=== PATIENT | male | born 1985 | race African-American/Black ===

== ENCOUNTER 2016-08-11 22:55 | Emergency (ER) | payer MEDICAID ==
[~2016-08-11] VITALS: Ht 188 cm; Wt 79.5 kg
[~2016-08-11 22:55] MED LIST: DICL75TA PO
[2016-08-11 23:10] VITALS: BP 177/99; PULSE 69; RESP 10; TEMP 97.9; O2SAT 97
[2016-08-11] MEDS ORDERED: XANA2TAB2 PO (23:23)
[2016-08-11] MEDS ORDERED: HYDR-3533 PO (23:23)
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
[2016-08-11] MEDS ORDERED: SODIUM CHLOR 0.9% 1000 ML INJ 1,000 ML IV ONE (23:30)
[2016-08-12 00:08] LABS: AUTOMATED NEUTROPHIL # 14.1 TH/MM3 (1.8-7.7); BASOPHIL % 0.1 % (0.0-2.0); EOSINOPHIL # 0.3 TH/MM3 (0-0.4); EOSINOPHIL % 1.8 % (0.0-4.0); HEMATOCRIT 44.2 % (39.0-51.0); HEMO FLAGS DIFF FINAL; LYMPH % 9.1 % (9.0-44.0); LYMPHOCYTE # 1.5 TH/MM3 (1.0-4.8); MEAN CELL VOLUME 86.4 FL (80.0-100.0); MEAN CORPUSCULAR HEMOGLOBIN 28.8 PG (27.0-34.0); MEAN CORPUSCULAR HGB CONC 33.4 % (32.0-36.0); MONO % 5.2 % (0.0-8.0); NEUT % 83.8 % (16.0-70.0); PLATELET COUNT 249 TH/MM3 (150-450); RED BLOOD COUNT 5.12 MIL/MM3 (4.50-5.90); RED CELL DISTRIBUTION WIDTH 14.3 % (11.6-17.2); WHITE BLOOD COUNT 16.8 TH/MM3 (4.0-11.0)
[2016-08-12 00:31] LABS: ANION GAP 6 MEQ/L (5-15); AST (GOT) 14 U/L (15-37); BICARBONATE 28.8 MEQ/L (21.0-32.0); BLOOD UREA NITROGEN 11 MG/DL (7-18); CHLORIDE 104 MEQ/L (98-107); GLOMERULAR FILTRATION RATE 79 ML/MIN (>89); MAGNESIUM 2.1 MG/DL (1.5-2.5); POTASSIUM 4.1 MEQ/L (3.5-5.1); SODIUM (NA) 139 MEQ/L (136-145)
[2016-08-12 00:33] LABS: ALKALINE PHOSPHATASE 69 U/L (45-117); ALT (GPT) 20 U/L (12-78); TOTAL BILIRUBIN ADULT 1.1 MG/DL (0.2-1.0)
[2016-08-12 01:00] LABS: ACETAMINOPHEN LESS THAN 2.0 MCG/ML (10.0-30.0)
== END 2016-08-12 02:28 | disposition home or self-care (01) ==
LOC: NEPC 22:55
DX: T40.1X1A Poisoning by heroin, accidental (unintentional), initial encounter (principal); M54.9 Dorsalgia, unspecified; G89.29 Other chronic pain; F17.210 Nicotine dependence, cigarettes, uncomplicated
CPT/HCPCS: 80053; 80307; 83735; 85025; 96360; 99284; J7030

== ENCOUNTER 2017-09-22 21:14 | Emergency (ER) | payer MEDICAID ==
[~2017-09-22 21:14] MED LIST changes: -DICL75TA PO; +HYDR-3533 PO; +XANA2TAB2 PO
[2017-09-22 21:16] VITALS: BP 157/84; PULSE 85; RESP 18; TEMP 98.5; O2SAT 100
[2017-09-22] MEDS ORDERED: NORC5TAB PO (22:21)
[2017-09-22] MEDS ORDERED: AMOX500T PO (22:21)
--- NOTE | 2017-09-22 22:25 | PD ---
HPI Chief Complaint: Oral / Dental Pain or Problem Time Seen by Provider: 21:44 Travel History International Travel<30 days: No Contact w/Intl Traveler<30days: No Traveled to known affect area: No History of Present Illness HPI 32-year-old black male presents emergency department complains of dental pain. He states that he has had a dental carry in his right upper maxilla for quite some time. He states that he was eating this evening and part of his tooth broke off causing severe pain. He feels as if his gums are swelling. Worsened by eating. No alleviating factors. Patient states the pain is severe. He denies any other medical complaints. PFSH Past Medical History Autoimmune Disease: No Blood Disorders: No Anxiety: Yes Cancer: No Cardiovascular Problems: No Diminished Hearing: No Endocrine: No Gastrointestinal Disorders: No Genitourinary: No Musculoskeletal: Yes (LONG TERM, CHRONIC BACK PAIN, BROKEN PELVIS) Neurologic: No Psychiatric: No Respiratory: No Immunizations Current: Yes Tetanus Vaccination: < 5 Years Past Surgical History Other Surgery: No Social History Alcohol Use: No Tobacco Use: Yes (1ppd) Substance Use: Yes (heroin, marijuana) Allergies-Medications (Allergen,Severity, Reaction): Coded Allergies: No Known Allergies (Verified Adverse Reaction, Unknown, 09/22/17) Reported Meds & Prescriptions Reported Meds & Active Scripts Active Napier (Hydrocodone-Acetaminophen) 5 Mg-325 Mg Tab 1 Tab PO Q8HR PRN Amoxicillin 500 Mg Tab 500 Mg PO TID 10 Days Reported Xanax (Alprazolam) 2 Mg Tab 2 Mg PO Q8H PRN Lortab (Hydrocodone-Acetaminophen) 5-325 Mg Tab 1 Tab PO Q4H PRN Review of Systems General / Constitutional: No: Fever Eyes: No: Visual changes HENT: No: Headaches Cardiovascular: No: Chest Pain or Discomfort Respiratory: No: Shortness of Breath Gastrointestinal: No: Abdominal Pain Genitourinary: No: Dysuria Musculoskeletal: No: Pain Skin: No Rash Neurologic: No: Weakness Psychiatric: No: Depression Endocrine: No: Polydipsia Hematologic/Lymphatic: No: Easy Bruising Physical Exam Narrative GENERAL: Well-developed, well-nourished in no acute distress. Nontoxic appearing. HEAD: Normocephalic, atraumatic. EYES: Pupils equal round and reactive. Extraocular motions intact. No scleral icterus. No injection or drainage. ENT: TMs clear without erythema. The external auditory canals clear. Nose: clear . Posterior pharynx is pink and moist. No tonsillar edema or exudate. Uvula midline. Airway patent. Patient has a large dental carry in tooth #3. There is gingival erythema and edema. Patient has diffuse periodontal disease. NECK: Trachea midline.Supple, nontender, moves head freely. No central bony tenderness or spasm. CARDIOVASCULAR: Regular rate and rhythm without murmurs, gallops, or rubs. RESPIRATORY: Clear to auscultation. Breath sounds equal bilaterally. No wheezes , rales, or rhonchi. GASTROINTESTINAL: Abdomen soft, non-tender, nondistended. No hepato-splenomegaly , or palpable masses. No guarding. EXTREMITIES: No clubbing, cyanosis, or edema. No joint tenderness, effusion, or edema noted. BACK: Nontender without deformity or crepitance. No flank tenderness. Data Data Last Documented VS Vital Signs Date Time Temp Pulse Resp B/P (MAP) Pulse Ox O2 Delivery O2 Flow Rate FiO2 09/22/17 21:16 98.5 85 18 157/84 (108) 100 Orders Orders Ed Discharge Order (09/22/17 22:19) Amoxicillin (Trimox) (09/22/17 22:30) Acetamin-Hydrocod 325-5 Mg (Napier 5-325 (09/22/17 22:30) MDM Medical Decision Making Medical Screen Exam Complete: Yes Emergency Medical Condition: Yes Medical Record Reviewed: Yes Differential Diagnosis MDM: Moderate Differential diagnoses: Dental abscess, dental caries, osteitis, cellulitis Narrative Course This is dental caries, dentalgia. Patient is given amoxicillin 1 g p.o. and Napier 5 mg p.o. Diagnosis Primary Impression: Dentalgia Additional Impression: Dental caries Patient Instructions: General Instructions Additional Instructions: Rest. Saltwater gargles. [place] oil on cotton balls. 3 Advil every 6 hours. Amoxicillin and NORCO. follow-up with a dentist as soon as possible. And return to the ER if any problems. Med/Other Pt SpecificInfo: Prescription(s) given Scripts Hydrocodone-Acetaminophen (Napier) 5 Mg-325 Mg Tab 1 TAB PO Q8HR Y for PAIN, #6 TAB 0 Refills Prov: Francois Ruiz MD 09/22/17 Amoxicillin (Amoxicillin) 500 Mg Tab 500 MG PO TID for Infection for 10 Days, TAB 0 Refills Prov: Francois Ruiz MD 09/22/17 Disposition: 01 DISCHARGE HOME Condition: Stable Mehran Vincent September 22, 2017 22:25
[2017-09-22] MEDS ORDERED: ACETAMINOPHEN/HYDROcodone 325 MG/5 MG TAB PO ONE (22:30)
[2017-09-22] MEDS ORDERED: AMOXICILLIN (TRIHYDRATE) 500 MG CAP PO ONE (22:30)
== END 2017-09-22 22:34 | disposition home or self-care (01) ==
LOC: NEPD 21:14
DX: K08.89 Other specified disorders of teeth and supporting structures (principal); K02.9 Dental caries, unspecified; F17.200 Nicotine dependence, unspecified, uncomplicated; F12.90 Cannabis use, unspecified, uncomplicated; F11.90 Opioid use, unspecified, uncomplicated
CPT/HCPCS: 99283